=== PATIENT | female | born 1940 | race Caucasian/White ===

== ENCOUNTER 2020-10-12 15:38 | Inpatient (IN) ==
[2020-10-12] MEDS ORDERED: Saline Nasal Spray 44 ML BOTTLE NS PRN (19:30)
[2020-10-12] MEDS ORDERED: Ipratropium Neb 0.5 MG NEBULIZER IH PRN (19:30)
[2020-10-12] MEDS ORDERED: Levalbuterol Neb 1.25 MG/3 ML IH PRN (19:30)
[2020-10-12] MEDS: *HR* LORazepam 0.5 MG TABLET PO PRN (22:16)
[2020-10-12] MEDS: cloNIDine HCL 0.1 MG TABLET PO SCH (22:16)
[2020-10-12] MEDS: Melatonin 3 MG TABLET PO PRN (22:16)
[2020-10-12] MEDS: hydrALAZINE 25 MG TABLET PO SCH (22:16)
[2020-10-12] MEDS: BUDESONIDE IH SCH (23:28)
[2020-10-12] MEDS: GLYCOPYR IH SCH (23:28)
[2020-10-12] MEDS: FORMOTEROL IH SCH (23:28)
[2020-10-13 07:12] LABS: Basophils % 0.2 %; Hematocrit 25.1 % (35.3-44.9); Hemoglobin 8.4 g/dL (11.5-15.4); Immature Granulocytes % 0.6 % (0-4); Lymphocytes # 0.8 K/mcL (0.6-4.6); Lymphocytes % 15.8 %; Mean Corpuscular HGB Conc 33.5 g/dL (31.6-35.5); Mean Corpuscular Hemoglobin 31.3 pg (28.0-33.3); Mean Corpuscular Volume 93.7 fL (83.0-100.0); Mean Platelet Volume 12.3 fL (9.4-12.4); Monocytes # 0.5 K/mcL (0.0-1.3); Monocytes % 10.5 %; Neutrophils # 3.7 K/mcL (1.6-8.9); Platelet Count 111 K/mcL (140-400); Red Blood Count 2.68 M/mcL (3.82-4.97); Red Cell Distribution Width 16.2 % (11.5-14.5); Segmented Neutrophils % 72.9 %; White Blood Count 5.1 K/mcL (4.3-11.1)
[2020-10-13 07:30] LABS: Calcium 9.4 mg/dL (8.6-10.3); Potassium 4.1 mEq/L (3.5-5.1)
[2020-10-13] MEDS: hydrALAZINE 25 MG TABLET PO SCH ×3 (08:15→20:29)
[2020-10-13] MEDS: Aspirin Enteric Coated 81 MG Tablet PO SCH (08:15)
[2020-10-13] MEDS: cloNIDine HCL 0.1 MG TABLET PO SCH ×3 (08:16→20:29)
[2020-10-13] MEDS: Isosorbide MONOnitrate (24 HR) 30 MG TAB.ER.24H PO SCH (08:16)
[2020-10-13] MEDS ORDERED: NIFEdipine XL (24 HR) 60 MG TAB.ER.24 PO SCH (09:00)
[2020-10-13] MEDS ORDERED: Fluticasone Propionate Nasal 50 MCG/SPRAY BOTTLE NS SCH (09:00)
[2020-10-13] MEDS: FORMOTEROL IH SCH ×2 (10:47→20:36)
[2020-10-13] MEDS: GLYCOPYR IH SCH ×2 (10:47→20:36)
[2020-10-13] MEDS: BUDESONIDE IH SCH ×2 (10:47→20:36)
[2020-10-13] MEDS: Melatonin 3 MG TABLET PO PRN (20:30)
[2020-10-13] MEDS: *HR* LORazepam 0.5 MG TABLET PO PRN (20:30)
[2020-10-14] MEDS: Ondansetron ODT 4 MG TAB.RAPDIS PO PRN ×2 (04:13→12:31)
[2020-10-14] MEDS: Aspirin Enteric Coated 81 MG Tablet PO SCH (11:10)
[2020-10-14] MEDS: cloNIDine HCL 0.1 MG TABLET PO SCH ×3 (11:10→22:02)
[2020-10-14] MEDS: Isosorbide MONOnitrate (24 HR) 30 MG TAB.ER.24H PO SCH (11:11)
[2020-10-14] MEDS: NIFEdipine XL (24 HR) 30 MG TAB.ER.24 PO SCH (11:11)
[2020-10-14] MEDS: hydrALAZINE 25 MG TABLET PO SCH ×3 (11:11→22:01)
[2020-10-14] MEDS: FORMOTEROL IH SCH ×2 (11:12→22:03)
[2020-10-14] MEDS: Fluticasone Propionate Nasal 50 MCG/SPRAY BOTTLE NS SCH (11:12)
[2020-10-14] MEDS: BUDESONIDE IH SCH ×2 (11:12→22:03)
[2020-10-14] MEDS: GLYCOPYR IH SCH ×2 (11:12→22:03)
[2020-10-14] MEDS: Melatonin 3 MG TABLET PO PRN (22:02)
[2020-10-14] MEDS: *HR* LORazepam 0.5 MG TABLET PO PRN (22:02)
[2020-10-15] MEDS: Fluticasone Propionate Nasal 50 MCG/SPRAY BOTTLE NS SCH (08:45)
[2020-10-15] MEDS: NIFEdipine XL (24 HR) 30 MG TAB.ER.24 PO SCH (08:46)
[2020-10-15] MEDS: hydrALAZINE 25 MG TABLET PO SCH ×3 (08:46→21:46)
[2020-10-15] MEDS: Aspirin Enteric Coated 81 MG Tablet PO SCH (08:47)
[2020-10-15] MEDS: Isosorbide MONOnitrate (24 HR) 30 MG TAB.ER.24H PO SCH (08:47)
[2020-10-15] MEDS: cloNIDine HCL 0.1 MG TABLET PO SCH ×3 (08:47→21:45)
[2020-10-15] MEDS: GLYCOPYR IH SCH ×2 (08:48→21:46)
[2020-10-15] MEDS: FORMOTEROL IH SCH ×2 (08:48→21:46)
[2020-10-15] MEDS: BUDESONIDE IH SCH ×2 (08:48→21:46)
[2020-10-15] MEDS: *HR* LORazepam 0.5 MG TABLET PO PRN (21:46)
[2020-10-15] MEDS: Melatonin 3 MG TABLET PO PRN (21:46)
[2020-10-16] MEDS: Ondansetron ODT 4 MG TAB.RAPDIS PO PRN (04:14)
[2020-10-16] MEDS: Aspirin Enteric Coated 81 MG Tablet PO SCH (11:18)
[2020-10-16] MEDS: hydrALAZINE 25 MG TABLET PO SCH ×3 (11:18→19:49)
[2020-10-16] MEDS: Isosorbide MONOnitrate (24 HR) 30 MG TAB.ER.24H PO SCH (11:18)
[2020-10-16] MEDS: NIFEdipine XL (24 HR) 30 MG TAB.ER.24 PO SCH (11:19)
[2020-10-16] MEDS: FORMOTEROL IH SCH ×2 (11:19→19:50)
[2020-10-16] MEDS: Fluticasone Propionate Nasal 50 MCG/SPRAY BOTTLE NS SCH (11:19)
[2020-10-16] MEDS: BUDESONIDE IH SCH ×2 (11:19→19:50)
[2020-10-16] MEDS: GLYCOPYR IH SCH ×2 (11:19→19:50)
[2020-10-16] MEDS: cloNIDine HCL 0.1 MG TABLET PO SCH ×3 (11:19→19:49)
[2020-10-16] MEDS: Melatonin 3 MG TABLET PO PRN (19:50)
[2020-10-16] MEDS: *HR* LORazepam 0.5 MG TABLET PO PRN (19:50)
[2020-10-17] MEDS: GLYCOPYR IH SCH ×2 (08:01→19:51)
[2020-10-17] MEDS: FORMOTEROL IH SCH ×2 (08:01→19:51)
[2020-10-17] MEDS: BUDESONIDE IH SCH ×2 (08:01→19:51)
[2020-10-17 08:06] LABS: Basophils % 0.5 %; Eosinophils # 0.1 K/mcL (0.0-0.6); Eosinophils % 2.1 %; Hematocrit 23.9 % (35.3-44.9); Hemoglobin 7.8 g/dL (11.5-15.4); Immature Granulocytes % 0.7 % (0-4); Lymphocytes # 0.7 K/mcL (0.6-4.6); Lymphocytes % 16.8 %; Mean Corpuscular HGB Conc 32.6 g/dL (31.6-35.5); Mean Corpuscular Hemoglobin 31.6 pg (28.0-33.3); Mean Corpuscular Volume 96.8 fL (83.0-100.0); Mean Platelet Volume 10.8 fL (9.4-12.4); Monocytes # 0.4 K/mcL (0.0-1.3); Monocytes % 10.1 %; Platelet Count 101 K/mcL (140-400); Red Blood Count 2.47 M/mcL (3.82-4.97); Red Cell Distribution Width 16.6 % (11.5-14.5); Segmented Neutrophils % 69.8 %; White Blood Count 4.3 K/mcL (4.3-11.1)
[2020-10-17 08:19] LABS: Calcium 8.6 mg/dL (8.6-10.3); Potassium 3.2 mEq/L (3.5-5.1)
[2020-10-17] MEDS: hydrALAZINE 25 MG TABLET PO SCH ×3 (09:02→19:50)
[2020-10-17] MEDS: Isosorbide MONOnitrate (24 HR) 30 MG TAB.ER.24H PO SCH (09:02)
[2020-10-17] MEDS: cloNIDine HCL 0.1 MG TABLET PO SCH ×3 (09:02→19:50)
[2020-10-17] MEDS: NIFEdipine XL (24 HR) 30 MG TAB.ER.24 PO SCH (09:02)
[2020-10-17] MEDS: Aspirin Enteric Coated 81 MG Tablet PO SCH (09:02)
[2020-10-17] MEDS: Fluticasone Propionate Nasal 50 MCG/SPRAY BOTTLE NS SCH (09:11)
[2020-10-17] MEDS: *HR* LORazepam 0.5 MG TABLET PO PRN (18:18)
[2020-10-17] MEDS: Melatonin 3 MG TABLET PO PRN (19:50)
[2020-10-18] MEDS: GLYCOPYR IH SCH ×2 (09:30→21:05)
[2020-10-18] MEDS: BUDESONIDE IH SCH ×2 (09:30→21:05)
[2020-10-18] MEDS: FORMOTEROL IH SCH ×2 (09:30→21:05)
[2020-10-18] MEDS: NIFEdipine XL (24 HR) 30 MG TAB.ER.24 PO SCH (09:46)
[2020-10-18] MEDS: cloNIDine HCL 0.1 MG TABLET PO SCH ×3 (09:46→21:04)
[2020-10-18] MEDS: hydrALAZINE 25 MG TABLET PO SCH ×3 (09:46→21:04)
[2020-10-18] MEDS: Isosorbide MONOnitrate (24 HR) 30 MG TAB.ER.24H PO SCH (09:46)
[2020-10-18] MEDS: Aspirin Enteric Coated 81 MG Tablet PO SCH (09:46)
[2020-10-18] MEDS: Fluticasone Propionate Nasal 50 MCG/SPRAY BOTTLE NS SCH (09:53)
[2020-10-18] MEDS: Melatonin 3 MG TABLET PO PRN (21:04)
[2020-10-18] MEDS: *HR* LORazepam 0.5 MG TABLET PO PRN (21:05)
[2020-10-19] MEDS: Ondansetron ODT 4 MG TAB.RAPDIS PO PRN (04:08)
[2020-10-19] MEDS: *HR* LORazepam 0.5 MG TABLET PO PRN ×2 (10:20→20:26)
[2020-10-19] MEDS: NIFEdipine XL (24 HR) 30 MG TAB.ER.24 PO SCH (10:20)
[2020-10-19] MEDS: hydrALAZINE 25 MG TABLET PO SCH ×3 (10:20→20:25)
[2020-10-19] MEDS: Aspirin Enteric Coated 81 MG Tablet PO SCH (10:20)
[2020-10-19] MEDS: Isosorbide MONOnitrate (24 HR) 30 MG TAB.ER.24H PO SCH (10:20)
[2020-10-19] MEDS: Fluticasone Propionate Nasal 50 MCG/SPRAY BOTTLE NS SCH (10:22)
[2020-10-19] MEDS: BUDESONIDE IH SCH ×2 (10:28→20:26)
[2020-10-19] MEDS: GLYCOPYR IH SCH ×2 (10:28→20:26)
[2020-10-19] MEDS: FORMOTEROL IH SCH ×2 (10:28→20:26)
[2020-10-19] MEDS: cloNIDine HCL 0.1 MG TABLET PO SCH ×3 (10:45→20:26)
[2020-10-19] MEDS: Melatonin 3 MG TABLET PO PRN (20:26)
[2020-10-20] MEDS: Isosorbide MONOnitrate (24 HR) 30 MG TAB.ER.24H PO SCH (09:11)
[2020-10-20] MEDS: Aspirin Enteric Coated 81 MG Tablet PO SCH (09:11)
[2020-10-20] MEDS: NIFEdipine XL (24 HR) 30 MG TAB.ER.24 PO SCH (09:12)
[2020-10-20] MEDS: *HR* LORazepam 0.5 MG TABLET PO PRN ×2 (09:12→19:47)
[2020-10-20] MEDS: hydrALAZINE 25 MG TABLET PO SCH ×3 (09:12→19:47)
[2020-10-20] MEDS: cloNIDine HCL 0.1 MG TABLET PO SCH ×3 (09:12→19:47)
[2020-10-20] MEDS: GLYCOPYR IH SCH ×2 (09:17→19:47)
[2020-10-20] MEDS: Fluticasone Propionate Nasal 50 MCG/SPRAY BOTTLE NS SCH (09:17)
[2020-10-20] MEDS: FORMOTEROL IH SCH ×2 (09:17→19:47)
[2020-10-20] MEDS: BUDESONIDE IH SCH ×2 (09:17→19:47)
[2020-10-20 13:02] LABS: Basophils % 0.5 %; Eosinophils # 0.1 K/mcL (0.0-0.6); Eosinophils % 1.5 %; Hematocrit 23.7 % (35.3-44.9); Hemoglobin 7.8 g/dL (11.5-15.4); Immature Granulocytes % 0.5 % (0-4); Lymphocytes % 13.6 %; Mean Corpuscular HGB Conc 32.9 g/dL (31.6-35.5); Mean Corpuscular Hemoglobin 31.6 pg (28.0-33.3); Mean Platelet Volume 10.4 fL (9.4-12.4); Monocytes # 0.4 K/mcL (0.0-1.3); Monocytes % 9.2 %; Red Blood Count 2.47 M/mcL (3.82-4.97); Red Cell Distribution Width 17.9 % (11.5-14.5); Segmented Neutrophils % 74.7 %
[2020-10-20 13:10] LABS: Lymphocytes # 0.5 K/mcL (0.6-4.6); Platelet Count 97 K/mcL (140-400)
[2020-10-20 13:21] LABS: Troponin I 0.03 ng/mL (< 0.04)
[2020-10-20 13:28] LABS: Calcium 8.8 mg/dL (8.6-10.3); Potassium 3.4 mEq/L (3.5-5.1)
[2020-10-20] MEDS: Melatonin 3 MG TABLET PO PRN (19:46)
[2020-10-21] MEDS: Ondansetron ODT 4 MG TAB.RAPDIS PO PRN ×2 (04:26→12:27)
[2020-10-21] MEDS: Fluticasone Propionate Nasal 50 MCG/SPRAY BOTTLE NS SCH (10:33)
[2020-10-21] MEDS: Isosorbide MONOnitrate (24 HR) 30 MG TAB.ER.24H PO SCH (10:35)
[2020-10-21] MEDS: Aspirin Enteric Coated 81 MG Tablet PO SCH (10:36)
[2020-10-21] MEDS: cloNIDine HCL 0.1 MG TABLET PO SCH ×3 (10:36→20:55)
[2020-10-21] MEDS: GLYCOPYR IH SCH ×2 (10:36→20:56)
[2020-10-21] MEDS: BUDESONIDE IH SCH ×2 (10:36→20:56)
[2020-10-21] MEDS: FORMOTEROL IH SCH ×2 (10:36→20:56)
[2020-10-21] MEDS: NIFEdipine XL (24 HR) 30 MG TAB.ER.24 PO SCH (10:36)
[2020-10-21] MEDS: hydrALAZINE 25 MG TABLET PO SCH ×3 (10:36→20:55)
[2020-10-21] MEDS: Megestrol Acetate 400 MG/10 ML UDC PO SCH (15:42)
[2020-10-21] MEDS: *HR* LORazepam 0.5 MG TABLET PO PRN (20:55)
[2020-10-21] MEDS: Melatonin 3 MG TABLET PO PRN (20:55)
[2020-10-22] MEDS ORDERED: *HR* Labetalol 20 MG/4 ML SYRINGE IVP PRN (03:41)
[2020-10-22] MEDS: Isosorbide MONOnitrate (24 HR) 30 MG TAB.ER.24H PO SCH (08:41)
[2020-10-22] MEDS: Aspirin Enteric Coated 81 MG Tablet PO SCH (08:41)
[2020-10-22] MEDS: NIFEdipine XL (24 HR) 30 MG TAB.ER.24 PO SCH (08:41)
[2020-10-22] MEDS: cloNIDine HCL 0.1 MG TABLET PO SCH ×3 (08:41→21:48)
[2020-10-22] MEDS: Megestrol Acetate 400 MG/10 ML UDC PO SCH (08:42)
[2020-10-22] MEDS: hydrALAZINE 25 MG TABLET PO SCH ×3 (08:42→21:49)
[2020-10-22] MEDS: Fluticasone Propionate Nasal 50 MCG/SPRAY BOTTLE NS SCH (08:45)
[2020-10-22] MEDS: FORMOTEROL IH SCH ×2 (08:53→21:49)
[2020-10-22] MEDS: BUDESONIDE IH SCH ×2 (08:53→21:49)
[2020-10-22] MEDS: GLYCOPYR IH SCH ×2 (08:53→21:49)
[2020-10-22] MEDS: Melatonin 3 MG TABLET PO PRN (21:49)
[2020-10-22] MEDS: *HR* LORazepam 0.5 MG TABLET PO PRN (21:49)
[2020-10-23] MEDS: Ondansetron ODT 4 MG TAB.RAPDIS PO PRN (04:28)
[2020-10-23] MEDS: hydrALAZINE 25 MG TABLET PO SCH ×3 (10:26→21:56)
[2020-10-23] MEDS: *HR* OxyCODONE/APAP 5/325 TABLET PO PRN (10:27)
[2020-10-23] MEDS: cloNIDine HCL 0.1 MG TABLET PO SCH ×3 (10:27→21:56)
[2020-10-23] MEDS: Isosorbide MONOnitrate (24 HR) 30 MG TAB.ER.24H PO SCH (10:27)
[2020-10-23] MEDS: Aspirin Enteric Coated 81 MG Tablet PO SCH (10:27)
[2020-10-23] MEDS: NIFEdipine XL (24 HR) 30 MG TAB.ER.24 PO SCH (10:28)
[2020-10-23] MEDS: Fluticasone Propionate Nasal 50 MCG/SPRAY BOTTLE NS SCH (10:28)
[2020-10-23] MEDS: BUDESONIDE IH SCH ×2 (10:29→21:56)
[2020-10-23] MEDS: Megestrol Acetate 400 MG/10 ML UDC PO SCH (10:29)
[2020-10-23] MEDS: FORMOTEROL IH SCH ×2 (10:29→21:56)
[2020-10-23] MEDS: GLYCOPYR IH SCH ×2 (10:29→21:56)
[2020-10-23] MEDS: *HR* LORazepam 0.5 MG TABLET PO PRN ×2 (10:32→21:55)
[2020-10-23 11:44] LABS: Hematocrit 24.6 % (35.3-44.9); Hemoglobin 8.1 g/dL (11.5-15.4); Mean Corpuscular HGB Conc 32.9 g/dL (31.6-35.5); Mean Corpuscular Hemoglobin 31.9 pg (28.0-33.3); Mean Corpuscular Volume 96.9 fL (83.0-100.0); Mean Platelet Volume 10.9 fL (9.4-12.4); Platelet Count 107 K/mcL (140-400); Red Blood Count 2.54 M/mcL (3.82-4.97); Red Cell Distribution Width 18.5 % (11.5-14.5); White Blood Count 3.4 K/mcL (4.3-11.1)
[2020-10-23 11:55] LABS: BUN/Creatinine Ratio 5 (6-26); Blood Urea Nitrogen 3 mg/dL (8-23); Calcium 8.2 mg/dL (8.6-10.3); Carbon Dioxide 30 mEq/L (23-29); Chloride 100 mEq/L (98-107); Glucose 110 mg/dL (70-105); Magnesium 1.6 mg/dL (1.6-2.6); Osmolality,Calculated 283 (280-300); Potassium 2.9 mEq/L (3.5-5.1); Sodium 138 mEq/L (136-145); eGFR For African Americans > 60 (> 60); eGFR For Non-African Americans > 60 (> 60)
[2020-10-23] MEDS: Melatonin 3 MG TABLET PO PRN (21:56)
[2020-10-24] MEDS: NIFEdipine XL (24 HR) 30 MG TAB.ER.24 PO SCH (09:19)
[2020-10-24] MEDS: Isosorbide MONOnitrate (24 HR) 30 MG TAB.ER.24H PO SCH (09:19)
[2020-10-24] MEDS: hydrALAZINE 25 MG TABLET PO SCH ×3 (09:20→20:13)
[2020-10-24] MEDS: Aspirin Enteric Coated 81 MG Tablet PO SCH (09:20)
[2020-10-24] MEDS: Megestrol Acetate 400 MG/10 ML UDC PO SCH (09:20)
[2020-10-24] MEDS: Fluticasone Propionate Nasal 50 MCG/SPRAY BOTTLE NS SCH (09:20)
[2020-10-24] MEDS: cloNIDine HCL 0.1 MG TABLET PO SCH ×3 (09:20→20:10)
[2020-10-24] MEDS: BUDESONIDE IH SCH ×2 (10:26→20:11)
[2020-10-24] MEDS: FORMOTEROL IH SCH ×2 (10:26→20:11)
[2020-10-24] MEDS: GLYCOPYR IH SCH ×2 (10:26→20:11)
[2020-10-24] MEDS: Potassium Chloride Elixir 20 MEQ/15 ML UDC PO SCH ×2 (10:26→20:10)
[2020-10-24] MEDS: *HR* LORazepam 0.5 MG TABLET PO PRN (20:09)
[2020-10-24] MEDS: Melatonin 3 MG TABLET PO PRN (20:10)
[2020-10-25 07:15] LABS: Hematocrit 25.8 % (35.3-44.9); Hemoglobin 8.4 g/dL (11.5-15.4); Mean Corpuscular HGB Conc 32.6 g/dL (31.6-35.5); Mean Corpuscular Hemoglobin 31.7 pg (28.0-33.3); Mean Corpuscular Volume 97.4 fL (83.0-100.0); Platelet Count 142 K/mcL (140-400); Red Blood Count 2.65 M/mcL (3.82-4.97); White Blood Count 3.6 K/mcL (4.3-11.1)
[2020-10-25 07:39] LABS: Calcium 9.1 mg/dL (8.6-10.3); Potassium 4.5 mEq/L (3.5-5.1)
[2020-10-25] MEDS: BUDESONIDE IH SCH ×2 (07:59→20:29)
[2020-10-25] MEDS: FORMOTEROL IH SCH ×2 (07:59→20:29)
[2020-10-25] MEDS: GLYCOPYR IH SCH ×2 (07:59→20:29)
[2020-10-25] MEDS: Fluticasone Propionate Nasal 50 MCG/SPRAY BOTTLE NS SCH (09:12)
[2020-10-25] MEDS: hydrALAZINE 25 MG TABLET PO SCH ×3 (09:12→20:28)
[2020-10-25] MEDS: NIFEdipine XL (24 HR) 30 MG TAB.ER.24 PO SCH (09:13)
[2020-10-25] MEDS: Aspirin Enteric Coated 81 MG Tablet PO SCH (09:13)
[2020-10-25] MEDS: cloNIDine HCL 0.1 MG TABLET PO SCH ×3 (09:13→20:29)
[2020-10-25] MEDS: Isosorbide MONOnitrate (24 HR) 30 MG TAB.ER.24H PO SCH (09:14)
[2020-10-25] MEDS: Megestrol Acetate 400 MG/10 ML UDC PO SCH (09:14)
[2020-10-25 16:01] LABS: Potassium 4.4 mEq/L (3.5-5.1)
[2020-10-25] MEDS: *HR* LORazepam 0.5 MG TABLET PO PRN (18:09)
[2020-10-25] MEDS: Melatonin 3 MG TABLET PO PRN (20:28)
[2020-10-26] MEDS: Ondansetron ODT 4 MG TAB.RAPDIS PO PRN (04:21)
[2020-10-26] MEDS: Isosorbide MONOnitrate (24 HR) 30 MG TAB.ER.24H PO SCH (11:56)
[2020-10-26] MEDS: cloNIDine HCL 0.1 MG TABLET PO SCH ×3 (11:56→22:24)
[2020-10-26] MEDS: Aspirin Enteric Coated 81 MG Tablet PO SCH (11:57)
[2020-10-26] MEDS: hydrALAZINE 25 MG TABLET PO SCH ×3 (11:58→22:24)
[2020-10-26] MEDS: NIFEdipine XL (24 HR) 30 MG TAB.ER.24 PO SCH (12:00)
[2020-10-26] MEDS: Fluticasone Propionate Nasal 50 MCG/SPRAY BOTTLE NS SCH (12:02)
[2020-10-26] MEDS: Megestrol Acetate 400 MG/10 ML UDC PO SCH (12:09)
[2020-10-26] MEDS: FORMOTEROL IH SCH ×2 (12:09→22:26)
[2020-10-26] MEDS: GLYCOPYR IH SCH ×2 (12:09→22:26)
[2020-10-26] MEDS: BUDESONIDE IH SCH ×2 (12:09→22:26)
[2020-10-26] MEDS: *HR* LORazepam 0.5 MG TABLET PO PRN (13:32)
[2020-10-26] MEDS: Melatonin 3 MG TABLET PO PRN (22:24)
[2020-10-27] MEDS: hydrALAZINE 25 MG TABLET PO SCH ×3 (09:06→21:08)
[2020-10-27] MEDS: Aspirin Enteric Coated 81 MG Tablet PO SCH (09:08)
[2020-10-27] MEDS: NIFEdipine XL (24 HR) 30 MG TAB.ER.24 PO SCH (09:09)
[2020-10-27] MEDS: cloNIDine HCL 0.1 MG TABLET PO SCH ×3 (09:09→21:08)
[2020-10-27] MEDS: Isosorbide MONOnitrate (24 HR) 30 MG TAB.ER.24H PO SCH (09:10)
[2020-10-27] MEDS: Megestrol Acetate 400 MG/10 ML UDC PO SCH (09:20)
[2020-10-27] MEDS: FORMOTEROL IH SCH ×2 (09:20→21:09)
[2020-10-27] MEDS: GLYCOPYR IH SCH ×2 (09:20→21:09)
[2020-10-27] MEDS: BUDESONIDE IH SCH ×2 (09:20→21:09)
[2020-10-27] MEDS: Ondansetron ODT 4 MG TAB.RAPDIS PO PRN (11:03)
[2020-10-27] MEDS: Fluticasone Propionate Nasal 50 MCG/SPRAY BOTTLE NS SCH (11:04)
[2020-10-27] MEDS: Melatonin 3 MG TABLET PO PRN (21:07)
[2020-10-28] MEDS: Megestrol Acetate 400 MG/10 ML UDC PO SCH (10:46)
[2020-10-28] MEDS: NIFEdipine XL (24 HR) 30 MG TAB.ER.24 PO SCH (10:46)
[2020-10-28] MEDS: Fluticasone Propionate Nasal 50 MCG/SPRAY BOTTLE NS SCH (10:46)
[2020-10-28] MEDS: Aspirin Enteric Coated 81 MG Tablet PO SCH (10:47)
[2020-10-28] MEDS: Isosorbide MONOnitrate (24 HR) 30 MG TAB.ER.24H PO SCH (10:47)
[2020-10-28] MEDS: hydrALAZINE 25 MG TABLET PO SCH ×3 (10:47→20:26)
[2020-10-28] MEDS: cloNIDine HCL 0.1 MG TABLET PO SCH ×3 (10:47→20:27)
[2020-10-28] MEDS: BUDESONIDE IH SCH ×2 (13:50→20:10)
[2020-10-28] MEDS: FORMOTEROL IH SCH ×2 (13:50→20:10)
[2020-10-28] MEDS: GLYCOPYR IH SCH ×2 (13:50→20:10)
[2020-10-28] MEDS: *HR* LORazepam 0.5 MG TABLET PO PRN (20:09)
[2020-10-28] MEDS: Melatonin 3 MG TABLET PO PRN (20:09)
[2020-10-29 07:56] LABS: Basophils % 0.8 %; Hemoglobin 8.9 g/dL (11.5-15.4); Immature Granulocytes % 0.5 % (0-4); Lymphocytes % 25.8 %; Mean Corpuscular HGB Conc 31.8 g/dL (31.6-35.5); Mean Corpuscular Hemoglobin 31.9 pg (28.0-33.3); Mean Corpuscular Volume 100.4 fL (83.0-100.0); Mean Platelet Volume 10.9 fL (9.4-12.4); Monocytes # 0.4 K/mcL (0.0-1.3); Monocytes % 9.2 %; Neutrophils # 2.5 K/mcL (1.6-8.9); Platelet Count 149 K/mcL (140-400); Red Blood Count 2.79 M/mcL (3.82-4.97); Segmented Neutrophils % 62.7 %; White Blood Count 3.9 K/mcL (4.3-11.1)
[2020-10-29 08:16] LABS: Calcium 8.9 mg/dL (8.6-10.3); Potassium 3.2 mEq/L (3.5-5.1)
[2020-10-29] MEDS: hydrALAZINE 25 MG TABLET PO SCH ×3 (09:44→20:17)
[2020-10-29] MEDS: Fluticasone Propionate Nasal 50 MCG/SPRAY BOTTLE NS SCH (09:45)
[2020-10-29] MEDS: Aspirin Enteric Coated 81 MG Tablet PO SCH (09:45)
[2020-10-29] MEDS: cloNIDine HCL 0.1 MG TABLET PO SCH ×3 (09:45→20:17)
[2020-10-29] MEDS: *HR* LORazepam 0.5 MG TABLET PO PRN ×2 (09:45→20:17)
[2020-10-29] MEDS: NIFEdipine XL (24 HR) 30 MG TAB.ER.24 PO SCH (09:45)
[2020-10-29] MEDS: Isosorbide MONOnitrate (24 HR) 30 MG TAB.ER.24H PO SCH (09:45)
[2020-10-29] MEDS: *HR* OxyCODONE/APAP 5/325 TABLET PO PRN (09:45)
[2020-10-29] MEDS: Ondansetron ODT 4 MG TAB.RAPDIS PO PRN (09:45)
[2020-10-29] MEDS: Megestrol Acetate 400 MG/10 ML UDC PO SCH (09:54)
[2020-10-29] MEDS: BUDESONIDE IH SCH ×2 (09:54→20:18)
[2020-10-29] MEDS: GLYCOPYR IH SCH ×2 (09:54→20:18)
[2020-10-29] MEDS: FORMOTEROL IH SCH ×2 (09:54→20:18)
[2020-10-29 15:47] LABS: Total Volume 24 Hour,Urine 0.11 Liters (0.60-1.60)
[2020-10-29] MEDS ORDERED: Potassium Chloride Elixir 20 MEQ/15 ML UDC PO ONE (19:00)
[2020-10-29] MEDS: Melatonin 3 MG TABLET PO PRN (20:17)
[2020-10-30] MEDS: Ondansetron ODT 4 MG TAB.RAPDIS PO PRN ×2 (04:16→11:56)
[2020-10-30] MEDS: Aspirin Enteric Coated 81 MG Tablet PO SCH (11:51)
[2020-10-30] MEDS: *HR* LORazepam 0.5 MG TABLET PO PRN ×2 (11:51→21:27)
[2020-10-30] MEDS: Fluticasone Propionate Nasal 50 MCG/SPRAY BOTTLE NS SCH (11:51)
[2020-10-30] MEDS: cloNIDine HCL 0.1 MG TABLET PO SCH ×3 (11:51→21:27)
[2020-10-30] MEDS: NIFEdipine XL (24 HR) 30 MG TAB.ER.24 PO SCH (11:51)
[2020-10-30] MEDS: Isosorbide MONOnitrate (24 HR) 30 MG TAB.ER.24H PO SCH (11:51)
[2020-10-30] MEDS: hydrALAZINE 25 MG TABLET PO SCH ×3 (11:52→21:27)
[2020-10-30] MEDS: *HR* OxyCODONE/APAP 5/325 TABLET PO PRN ×2 (11:52→21:27)
[2020-10-30] MEDS: FORMOTEROL IH SCH ×2 (11:56→21:28)
[2020-10-30] MEDS: Megestrol Acetate 400 MG/10 ML UDC PO SCH (11:56)
[2020-10-30] MEDS: GLYCOPYR IH SCH ×2 (11:56→21:28)
[2020-10-30] MEDS: BUDESONIDE IH SCH ×2 (11:56→21:28)
[2020-10-30] MEDS: Melatonin 3 MG TABLET PO PRN (21:27)
[2020-10-31] MEDS: Fluticasone Propionate Nasal 50 MCG/SPRAY BOTTLE NS SCH (09:52)
[2020-10-31] MEDS: *HR* LORazepam 0.5 MG TABLET PO PRN ×2 (09:53→18:20)
[2020-10-31] MEDS: Aspirin Enteric Coated 81 MG Tablet PO SCH (09:53)
[2020-10-31] MEDS: hydrALAZINE 25 MG TABLET PO SCH ×3 (09:53→20:09)
[2020-10-31] MEDS: NIFEdipine XL (24 HR) 30 MG TAB.ER.24 PO SCH (09:53)
[2020-10-31] MEDS: cloNIDine HCL 0.1 MG TABLET PO SCH ×3 (09:53→20:09)
[2020-10-31] MEDS: Isosorbide MONOnitrate (24 HR) 30 MG TAB.ER.24H PO SCH (09:53)
[2020-10-31] MEDS: FORMOTEROL IH SCH ×2 (09:54→21:46)
[2020-10-31] MEDS: Megestrol Acetate 400 MG/10 ML UDC PO SCH (09:54)
[2020-10-31] MEDS: BUDESONIDE IH SCH ×2 (09:54→21:46)
[2020-10-31] MEDS: GLYCOPYR IH SCH ×2 (09:54→21:46)
[2020-10-31] MEDS: *HR* OxyCODONE/APAP 5/325 TABLET PO PRN (18:20)
[2020-10-31] MEDS: Melatonin 3 MG TABLET PO PRN (20:09)
[2020-11-01] MEDS ORDERED: *HR* HYDROmorphone (PF) 1 MG/ML SYRINGE IVP ONE (03:28)
[2020-11-01] MEDS: *HR* OxyCODONE/APAP 5/325 TABLET PO PRN ×2 (03:44→20:40)
[2020-11-01 05:37] LABS: Basophils # 0.1 K/mcL (0.0-0.2); Basophils % 1.6 %; Eosinophils # 0.1 K/mcL (0.0-0.6); Eosinophils % 2.6 %; Hematocrit 26.6 % (35.3-44.9); Hemoglobin 8.6 g/dL (11.5-15.4); Immature Granulocytes % 0.6 % (0-4); Lymphocytes # 1.1 K/mcL (0.6-4.6); Mean Corpuscular HGB Conc 32.3 g/dL (31.6-35.5); Mean Corpuscular Hemoglobin 32.7 pg (28.0-33.3); Mean Corpuscular Volume 101.1 fL (83.0-100.0); Monocytes # 0.5 K/mcL (0.0-1.3); Monocytes % 15.1 %; Neutrophils # 1.4 K/mcL (1.6-8.9); Platelet Count 150 K/mcL (140-400); Red Blood Count 2.63 M/mcL (3.82-4.97); Red Cell Distribution Width 21.6 % (11.5-14.5); Segmented Neutrophils % 45.1 %; White Blood Count 3.1 K/mcL (4.3-11.1)
[2020-11-01] MEDS: Megestrol Acetate 400 MG/10 ML UDC PO SCH ×2 (08:59→09:06)
[2020-11-01] MEDS: cloNIDine HCL 0.1 MG TABLET PO SCH ×3 (09:00→20:39)
[2020-11-01] MEDS: Isosorbide MONOnitrate (24 HR) 30 MG TAB.ER.24H PO SCH (09:00)
[2020-11-01] MEDS: Aspirin Enteric Coated 81 MG Tablet PO SCH (09:00)
[2020-11-01] MEDS: NIFEdipine XL (24 HR) 30 MG TAB.ER.24 PO SCH (09:00)
[2020-11-01] MEDS: hydrALAZINE 25 MG TABLET PO SCH ×3 (09:00→20:39)
[2020-11-01] MEDS: Fluticasone Propionate Nasal 50 MCG/SPRAY BOTTLE NS SCH (09:01)
[2020-11-01] MEDS: GLYCOPYR IH SCH ×2 (09:02→22:18)
[2020-11-01] MEDS: BUDESONIDE IH SCH ×2 (09:02→22:18)
[2020-11-01] MEDS: FORMOTEROL IH SCH ×2 (09:02→22:18)
[2020-11-01] MEDS: Ondansetron ODT 4 MG TAB.RAPDIS PO PRN (09:43)
[2020-11-01 10:28] LABS: Calcium 8.7 mg/dL (8.6-10.3); Potassium 3.4 mEq/L (3.5-5.1)
[2020-11-02] MEDS ORDERED: hydrALAZINE 25 MG TABLET PO SCH (10:45)
[2020-11-02] MEDS ORDERED: cloNIDine HCL 0.1 MG TABLET PO SCH (10:45)
[2020-11-02] MEDS: NIFEdipine XL (24 HR) 30 MG TAB.ER.24 PO SCH (10:56)
[2020-11-02] MEDS: Isosorbide MONOnitrate (24 HR) 30 MG TAB.ER.24H PO SCH (10:56)
[2020-11-02] MEDS: Aspirin Enteric Coated 81 MG Tablet PO SCH (10:56)
[2020-11-02] MEDS: Megestrol Acetate 400 MG/10 ML UDC PO SCH (10:57)
[2020-11-02] MEDS: BUDESONIDE IH SCH (10:57)
[2020-11-02] MEDS: FORMOTEROL IH SCH (10:57)
[2020-11-02] MEDS: GLYCOPYR IH SCH (10:57)
[2020-11-02 11:05] VITALS: BP 186/69
[2020-11-02] MEDS: Fluticasone Propionate Nasal 50 MCG/SPRAY BOTTLE NS SCH (11:15)
[2020-11-02] MEDS: hydrALAZINE 25 MG TABLET PO SCH (11:16)
[2020-11-02] MEDS: cloNIDine HCL 0.1 MG TABLET PO SCH (11:16)
== END 2020-11-02 15:22 | disposition home health service (06) | DRG 945 ==
LOC: INPPIK 20:44
PROVIDERS: ADMIT Family Medicine; ATTEND Family Medicine